=== PATIENT | female | born 1990 | race Caucasian/White ===

== ENCOUNTER 2018-07-16 11:21 | Emergency (ER) | payer OTHER, MEDICAID, SELFPAY ==
[2018-07-16 11:32] VITALS: BP 131/78; PULSE 93; RESP 17; TEMP 37.7; O2SAT 99; BMI 19.8
[2018-07-16] MEDS: SODIUM CHLORIDE 0.9% 1,000 ML 150 ML IV (11:55)
[2018-07-16 12:01] LABS: Add Manual Diff / Slide Review NO; Basophils Absolute Auto 0 /uL (0-100); Basophils Percent Auto 0.1 % (0-2); Eosinophils Absolute Auto 0 /uL (0-450); Eosinophils Percent Auto 0.1 % (2-4); Hematocrit 38.7 % (36-46); Hemoglobin 13.7 g/dL (12.0-16.0); Lymphocytes Absolute Auto 400 /uL (1100-4500); Lymphocytes Percent Auto 6.5 % (25-40); Mean Corpuscular HGB Conc 35.4 % (30-36); Mean Corpuscular Hemoglobin 32.3 PG (26-34); Mean Corpuscular Volume 91.3 fL (80-100); Monocytes Absolute Auto 500 /uL (0-900); Neutrophils Absolute Auto 5500 /uL (1500-7000); Neutrophils Percent Auto 85.3 % (50-75); Platelet Count 158 X10^3/uL (150-400); Red Blood Cell Count 4.24 X10^6/uL (4.0-5.2); Red Cell Distribution Width 11.8 % (11.6-14.8); White Blood Cell Count 6.4 X10^3/uL (4.5-11.0)
--- NOTE | 2018-07-16 12:02 | ED.ABDPAIN ---
HPI - Abdominal Pain <Pratibha Thomas PA-C - Last Filed: 07/16/18 15:28> General Chief Complaint: Abdominal Pain Stated Complaint: POSSIBLE FLU,CDIFF IN PAST Time Seen by Provider: 07/16/18 11:23 Source: patient Mode of arrival: ambulatory Limitations: no limitations History of Present Illness HPI narrative: This 27-year-old female is sent from walk-in clinic for further evaluation of abdominal symptoms id she had onset of-watery diarrhea 4 days ago which has gradually worsened, and yesterday she started to have fever up to 100 at home and feeling achy all over with chills and sweats. she states that she has had 4 episodes of diarrhea today, again watery, no blood or mucus. She has vomited twice after trying fluids, has not had food. She denies any headache, nasal symptoms, cough. She denies wheeze, dyspnea or chest pain. She states she has crampy abdominal pain that is worse on the left, worsened with moving around and pressure, better resting. She denies any urinary symptoms or hematuria. Denies any vaginal discharge or STD concerns. Denies any possibility of . She denies any rash or other new symptoms on systems review. She has not traveled outside of the country since March, no recent personal or dietary exposures. She has a history of C diff more than 2 years ago, no recent antibiotics. Related Data Home Medications Medication Instructions Recorded Confirmed citalopram 40 mg PO DAILY 07/16/18 07/16/18 multivitamin with minerals 1 tab PO DAILY 07/16/18 07/16/18 [Hair,Skin and Nails] Previous Rx's Medication Instructions Recorded hydrocodone-acetaminophen 1 tab PO Q6H PRN #4 tab 07/16/18 ondansetron 4 mg PO Q8H PRN #6 tab 07/16/18 Allergies Allergy/AdvReac Type Severity Reaction Status Date / Time Sulfa (Sulfonamide Allergy Mild Unverified 07/15/17 11:51 Antibiotics) [SULFA (SULFONAMIDE ANTIBIOTICS)] Review of Systems <Pratibha Thomas PA-C - Last Filed: 07/16/18 15:28> Review of Systems ROS Unobtainable: All systems reviewed & are unremarkable except as noted in HPI and below PFSH <Pratibha Thomas PA-C - Last Filed: 07/16/18 15:28> Medical History Anxiety disorder (Chronic) No pertinent family history (Chronic) Surgical History (Updated 07/16/18 @ 12:22 by Pratibha Thomas PA-C) History of mandibular surgery (Resolved) Status post tonsillectomy and adenoidectomy (Resolved) Social History Smoking Status: Never smoker Social History Smoking Status: Never smoker Comment: No ETOH Exam <Pratibha Thomas PA-C - Last Filed: 07/16/18 15:28> Narrative Exam Narrative: GENERAL APPEARANCE: Patient sitting comfortably, in no distress. HEENT: PERRL, EOMI, no scleral icterus, normal oropharynx NECK: Supple, no masses LUNGS: Clear to auscultation bilaterally. no cough on exam HEART: Rate and rhythm regular, normal S1 and S2, no S3 or S4. ABDOMEN: Soft, nondistended, bowel sounds present x 4 quadrants, no masses palpable, no hepatosplenomegaly. moderate generalized tenderness most over the lower quadrant without guarding or rebound. +left CVAT EXTREMITIES: No edema, no calf tenderness DERMATOLOGIC: No jaundice or exanthem NEUROLOGIC: Alert and oriented with normal speech and coordination Initial Vital Signs Initial Vital Signs: Vital Signs Temperature 99.9 F H 07/16/18 11:32 Pulse Rate 93 H 07/16/18 11:32 Respiratory Rate 17 07/16/18 11:32 Blood Pressure 131/78 07/16/18 11:32 Pulse Oximetry 99 07/16/18 11:32 <Fuad Aviles DO - Last Filed: 07/16/18 15:38> Initial Vital Signs Initial Vital Signs: Vital Signs Temperature 99.9 F H 07/16/18 11:32 Pulse Rate 93 H 07/16/18 11:32 Respiratory Rate 17 07/16/18 11:32 Blood Pressure 131/78 07/16/18 11:32 Pulse Oximetry 99 07/16/18 11:32 Course <Pratibha Thomas PA-C - Last Filed: 07/16/18 15:28> Orders Ordered: ED Orders 07/16/18 11:50 Complete Blood Count AUTO DIFF Stat Comprehensive Metabolic Panel Stat Lipase Stat 07/16/18 13:05 GI Panel (Film Array) Stat Discontinued Medications Sodium Chloride (Normal Saline 0.9%) 1,000 mls @ 150 mls/hr IV CONT KISHA Last Infusion: 07/16/18 13:25 Dose: 0 mls/hr Admin: 07/16/18 11:55 Dose: 150 mls/hr Sodium Chloride (Normal Saline 0.9%) 1,000 mls @ 1,000 mls/hr IV BOLUS ONE Stop: 07/16/18 14:12 Last Admin: 07/16/18 13:29 Dose: 1,000 mls/hr Ketorolac Tromethamine (Toradol) 30 mg IV NOW ONE Stop: 07/16/18 12:17 Last Admin: 07/16/18 12:58 Dose: 30 mg Morphine Sulfate (Morphine) 1 mg IV NOW ONE Stop: 07/16/18 14:17 Last Admin: 07/16/18 14:27 Dose: 1 mg Ondansetron HCl (Zofran) 4 mg IV NOW ONE Stop: 07/16/18 12:17 Last Admin: 07/16/18 12:58 Dose: 4 mg Vital Signs - 8 hr 07/16/18 11:32 07/16/18 13:13 07/16/18 14:34 Temperature 99.9 F H Pulse Rate 93 H 86 83 Respiratory Rate 17 17 17 Blood Pressure 131/78 Blood Pressure [Right Arm] 124/65 104/62 Pulse Oximetry 99 100 100 <Fuad Aviles, DO - Last Filed: 07/16/18 15:38> Orders Ordered: ED Orders 07/16/18 11:50 Complete Blood Count AUTO DIFF Stat Comprehensive Metabolic Panel Stat Lipase Stat 07/16/18 13:05 GI Panel (Film Array) Stat Discontinued Medications Sodium Chloride (Normal Saline 0.9%) 1,000 mls @ 150 mls/hr IV CONT KISHA Last Infusion: 07/16/18 13:25 Dose: 0 mls/hr Admin: 07/16/18 11:55 Dose: 150 mls/hr Sodium Chloride (Normal Saline 0.9%) 1,000 mls @ 1,000 mls/hr IV BOLUS ONE Stop: 07/16/18 14:12 Last Admin: 07/16/18 13:29 Dose: 1,000 mls/hr Ketorolac Tromethamine (Toradol) 30 mg IV NOW ONE Stop: 07/16/18 12:17 Last Admin: 07/16/18 12:58 Dose: 30 mg Morphine Sulfate (Morphine) 1 mg IV NOW ONE Stop: 07/16/18 14:17 Last Admin: 07/16/18 14:27 Dose: 1 mg Ondansetron HCl (Zofran) 4 mg IV NOW ONE Stop: 07/16/18 12:17 Last Admin: 07/16/18 12:58 Dose: 4 mg Vital Signs - 8 hr 07/16/18 11:32 07/16/18 13:13 07/16/18 14:34 Temperature 99.9 F H Pulse Rate 93 H 86 83 Respiratory Rate 17 17 17 Blood Pressure 131/78 Blood Pressure [Right Arm] 124/65 104/62 Pulse Oximetry 99 100 100 MDM - Abdominal Pain <Pratibha Thomas PA-C - Last Filed: 07/16/18 15:28> Lab Data Result diagrams: 07/16/18 11:50 07/16/18 11:50 Lab Results 07/16/18 07/16/18 07/16/18 Range/Units 11:50 11:50 13:05 WBC 6.4 (4.5-11.0) X10^3/uL RBC 4.24 (4.0-5.2) X10^6/uL Hgb 13.7 (12.0-16.0) g/dL Hct 38.7 (36-46) % MCV 91.3 (80-100) fL MCH 32.3 (26-34) PG MCHC 35.4 (30-36) % RDW 11.8 (11.6-14.8) % Plt Count 158 (150-400) X10^3/uL Neut % (Auto) 85.3 H (50-75) % Lymph % (Auto) 6.5 L (25-40) % [place] % (Auto) 8.0 (3-14) % Eos % (Auto) 0.1 L (2-4) % Baso % (Auto) 0.1 (0-2) % Neut # (Auto) 5500 (9906-5039) /uL Lymph # (Auto) 400 L (8414-5107) /uL [place] # (Auto) 500 (0-900) /uL Eos # (Auto) 0 (0-450) /uL Baso # (Auto) 0 (0-100) /uL Sodium 136 L (137-145) mmol/L Potassium 4.0 (3.4-5.1) mmol/L Chloride 103 (98-107) mmol/L Carbon Dioxide 23 (22-32) mmol/L BUN 11 (7-17) mg/dL Creatinine 0.60 (0.52-1.04) mg/dL Estimated GFR > 60.0 (>60) mL/min BUN/Creatinine Ratio 18.3 (6-22) Glucose 90 (70-100) mg/dL Calcium 9.2 (8.4-10.2) mg/dL Total Bilirubin 0.6 (0.2-1.3) mg/dL AST 18 (14-36) IU/L ALT 24 (9-52) IU/L Alkaline Phosphatase 51 (38-126) U/L Total Protein 7.2 (6.3-8.2) g/dL Albumin 4.5 (3.5-5.0) g/dL Globulin 2.7 (1.7-4.1) g/dL Albumin/Globulin Ratio 1.7 (1.0-2.8) Lipase 58 (23-300) U/L Stl C. cayetanensis PCR Not detected (Not Detect) Stool Rotavirus (PCR) Detected H (Not Detect) Stool Adenovirus (PCR) Not detected (Not Detect) Stool Astrovirus (PCR) Not detected (Not Detect) Stool Cryptosporidium PCR Not detected (Not Detect) Stl E.coli Shiga Tox PCR Not detected (Not Detect) St Sh/Enteroin Ecoli PCR Not detected (Not Detect) Stool E coli O157 PCR Not Reportable Stl Enterotoxigenic E PCR Not detected (Not Detect) Stool EPEC (PCR) Not detected (Not Detect) Stl E. histolytica PCR Not detected (Not Detect) Stool Giardia Lamblia PCR Not detected (Not Detect) Stool Sapovirus (PCR) Not detected (Not Detect) Stl P. shigelloides PCR Not detected (Not Detect) St Y.enterocolitica PCR Not detected (Not Detect) Stool Vibrio (PCR) Not detected (Not Detect) Stl Vibrio cholerae PCR Not detected (Not Detect) Stl Enteroaggr Ecoli PCR Not detected (Not Detect) Stl Norovirus GI/GII PCR Not detected (Not Detect) Campylobacter (PCR) Not detected (Not Detect) C. difficile Tox (PCR) Not detected (Not Detect) Salmonella (PCR) Not detected (Not Detect) Point of care testing: Point of Care Testing Test Results Negative Urine Dip Bedside Urine Glucose Negative Bedside Urine Bilirubin + 1 Bedside Urine Ketone + 15 Urine Specific Steele 1.025 Bedside Urine Occult Blood - Negative Bedside Urine pH 6.0 Bedside Urine Protein +/- 15 Bedside Urine Urobilinogen - Negative Bedside Urine Nitrite - Negative Bedside Urine Leukocytes - Negative Esterase <Fuad Aviles DO - Last Filed: 07/16/18 15:38> Lab Data Lab Results 07/16/18 07/16/18 07/16/18 Range/Units 11:50 11:50 13:05 WBC 6.4 (4.5-11.0) X10^3/uL RBC 4.24 (4.0-5.2) X10^6/uL Hgb 13.7 (12.0-16.0) g/dL Hct 38.7 (36-46) % MCV 91.3 (80-100) fL MCH 32.3 (26-34) PG MCHC 35.4 (30-36) % RDW 11.8 (11.6-14.8) % Plt Count 158 (150-400) X10^3/uL Neut % (Auto) 85.3 H (50-75) % Lymph % (Auto) 6.5 L (25-40) % [place] % (Auto) 8.0 (3-14) % Eos % (Auto) 0.1 L (2-4) % Baso % (Auto) 0.1 (0-2) % Neut # (Auto) 5500 (1012-5467) /uL Lymph # (Auto) 400 L (7631-9112) /uL [place] # (Auto) 500 (0-900) /uL Eos # (Auto) 0 (0-450) /uL Baso # (Auto) 0 (0-100) /uL Sodium 136 L (137-145) mmol/L Potassium 4.0 (3.4-5.1) mmol/L Chloride 103 (98-107) mmol/L Carbon Dioxide 23 (22-32) mmol/L BUN 11 (7-17) mg/dL Creatinine 0.60 (0.52-1.04) mg/dL Estimated GFR > 60.0 (>60) mL/min BUN/Creatinine Ratio 18.3 (6-22) Glucose 90 (70-100) mg/dL Calcium 9.2 (8.4-10.2) mg/dL Total Bilirubin 0.6 (0.2-1.3) mg/dL AST 18 (14-36) IU/L ALT 24 (9-52) IU/L Alkaline Phosphatase 51 (38-126) U/L Total Protein 7.2 (6.3-8.2) g/dL Albumin 4.5 (3.5-5.0) g/dL Globulin 2.7 (1.7-4.1) g/dL Albumin/Globulin Ratio 1.7 (1.0-2.8) Lipase 58 (23-300) U/L Stl C. cayetanensis PCR Not detected (Not Detect) Stool Rotavirus (PCR) Detected H (Not Detect) Stool Adenovirus (PCR) Not detected (Not Detect) Stool Astrovirus (PCR) Not detected (Not Detect) Stool Cryptosporidium PCR Not detected (Not Detect) Stl E.coli Shiga Tox PCR Not detected (Not Detect) St Sh/Enteroin Ecoli PCR Not detected (Not Detect) Stool E coli O157 PCR Not Reportable Stl Enterotoxigenic E PCR Not detected (Not Detect) Stool EPEC (PCR) Not detected (Not Detect) Stl E. histolytica PCR Not detected (Not Detect) Stool Giardia Lamblia PCR Not detected (Not Detect) Stool Sapovirus (PCR) Not detected (Not Detect) Stl P. shigelloides PCR Not detected (Not Detect) St Y.enterocolitica PCR Not detected (Not Detect) Stool Vibrio (PCR) Not detected (Not Detect) Stl Vibrio cholerae PCR Not detected (Not Detect) Stl Enteroaggr Ecoli PCR Not detected (Not Detect) Stl Norovirus GI/GII PCR Not detected (Not Detect) Campylobacter (PCR) Not detected (Not Detect) C. difficile Tox (PCR) Not detected (Not Detect) Salmonella (PCR) Not detected (Not Detect) Point of care testing: Point of Care Testing Test Results Negative Urine Dip Bedside Urine Glucose Negative Bedside Urine Bilirubin + 1 Bedside Urine Ketone + 15 Urine Specific Steele 1.025 Bedside Urine Occult Blood - Negative Bedside Urine pH 6.0 Bedside Urine Protein +/- 15 Bedside Urine Urobilinogen - Negative Bedside Urine Nitrite - Negative Bedside Urine Leukocytes - Negative Esterase Discharge Plan Departure Patient Disposition: Home Clinical Impression: Gastroenteritis Discharge Date/Time: 07/16/18 15:09 Interventions: ED Discharge Assessment Last Done: 07/16/18 15:08 Instructions: Rotavirus, DI for Viral Gastroenteritis -- Adult Activity Restrictions/Additional Instructions: Your testing today showed a viral intestinal infection called rotavirus, which 1 of the most common sources of diarrhea and vomiting. typically this gets better on its own. I have prescribed antinausea medicine for you to take as needed. Please drink plenty of clear fluids today. Please knot picker cloth some Imodium and take that as needed as it typically helps with diarrhea and crampy pain. you can take [id number] 800mg every 8 hours, and I have prescribed few stronger pain pills to take today if you need them (do not drive as they can make you sleepy). As we talked about, you should return if you have any acutely worsening symptoms again, i.e. unable to keep down any fluids. For today, please drink plenty of clear fluids, and you can try broth. If you are feeling better this evening you can try a little bland food such as applesauce. If you are doing better tomorrow, you can try other bland foods such as bananas, white rice, white toast and slowly advance your diet from there as you are feeling better. Prescriptions: New hydrocodone-acetaminophen 5-325 mg tablet 1 tab PO Q6H PRN (Reason: acute abdominal pain) Qty: 4 RF: 0 ondansetron 4 mg tablet,disintegrating 4 mg PO Q8H PRN (Reason: nausea and vomiting) Qty: 6 RF: 0 No Action citalopram 40 mg tablet 40 mg PO DAILY RF: 0 multivitamin with minerals [Hair,Skin and Nails] Tablet 1 tab PO DAILY RF: 0 Referrals: Liliane Cartagena ARNP [[employer]] - <Fuad Aviles DO - Last Filed: 07/16/18 15:38> Cosign ED Attending Eliel Attestation: I was immediately available in the department for consultation. Documentation has been reviewed. I agree with assessment and plan.
[2018-07-16 12:09] LABS: Alanine Aminotransferase 24 IU/L (9-52); Albumin 4.5 g/dL (3.5-5.0); Albumin Globulin Ratio 1.7 (1.0-2.8); Alkaline Phosphatase 51 U/L (38-126); Aspartate Aminotransferase 18 IU/L (14-36); BUN Creatinine Ratio 18.3 (6-22); Bilirubin Total 0.6 mg/dL (0.2-1.3); Blood Urea Nitrogen 11 mg/dL (7-17); Calcium 9.2 mg/dL (8.4-10.2); Carbon Dioxide 23 mmol/L (22-32); Chloride 103 mmol/L (98-107); Estimated Glomerular Filt Rate > 60.0 mL/min (>60); Globulin 2.7 g/dL (1.7-4.1); Glucose 90 mg/dL (70-100); HEMOLYSIS 16 (0-50); Lipase 58 U/L (23-300); Sodium 136 mmol/L (137-145); Total Protein 7.2 g/dL (6.3-8.2)
--- NOTE | 2018-07-16 12:24 | ED_ITS ---
HPI - Abdominal Pain <Pratibha Thomas PA-C - Last Filed: 07/16/18 15:28> General Chief Complaint: Abdominal Pain Stated Complaint: POSSIBLE FLU,CDIFF IN PAST Time Seen by Provider: 07/16/18 11:23 Source: patient Mode of arrival: ambulatory Limitations: no limitations History of Present Illness HPI narrative: This 27-year-old female is sent from walk-in clinic for further evaluation of abdominal symptoms id she had onset of-watery diarrhea 4 days ago which has gradually worsened, and yesterday she started to have fever up to 100 at home and feeling achy all over with chills and sweats. she states that she has had 4 episodes of diarrhea today, again watery, no blood or mucus. She has vomited twice after trying fluids, has not had food. She denies any headache, nasal symptoms, cough. She denies wheeze, dyspnea or chest pain. She states she has crampy abdominal pain that is worse on the left, worsened with moving around and pressure, better resting. She denies any urinary symptoms or hematuria. Denies any vaginal discharge or STD concerns. Denies any possibility of . She denies any rash or other new symptoms on systems review. She has not traveled outside of the country since March, no recent personal or dietary exposures. She has a history of C diff more than 2 years ago, no recent antibiotics. Related Data Home Medications Medication Instructions Recorded Confirmed citalopram 40 mg PO DAILY 07/16/18 07/16/18 multivitamin with minerals 1 tab PO DAILY 07/16/18 07/16/18 [Hair,Skin and Nails] Previous Rx's Medication Instructions Recorded hydrocodone-acetaminophen 1 tab PO Q6H PRN #4 tab 07/16/18 ondansetron 4 mg PO Q8H PRN #6 tab 07/16/18 Allergies Allergy/AdvReac Type Severity Reaction Status Date / Time Sulfa (Sulfonamide Allergy Mild Unverified 07/15/17 11:51 Antibiotics) [SULFA (SULFONAMIDE ANTIBIOTICS)] Review of Systems <Pratibha Thomas PA-C - Last Filed: 07/16/18 15:28> Review of Systems ROS Unobtainable: All systems reviewed & are unremarkable except as noted in HPI and below PFSH <Pratibha Thomas PA-C - Last Filed: 07/16/18 15:28> Medical History Anxiety disorder (Chronic) No pertinent family history (Chronic) Surgical History (Updated 07/16/18 @ 12:22 by Pratibha Thomas PA-C) History of mandibular surgery (Resolved) Status post tonsillectomy and adenoidectomy (Resolved) Social History Smoking Status: Never smoker Social History Smoking Status: Never smoker Comment: No ETOH Exam <Pratibha Thomas PA-C - Last Filed: 07/16/18 15:28> Narrative Exam Narrative: GENERAL APPEARANCE: Patient sitting comfortably, in no distress. HEENT: PERRL, EOMI, no scleral icterus, normal oropharynx NECK: Supple, no masses LUNGS: Clear to auscultation bilaterally. no cough on exam HEART: Rate and rhythm regular, normal S1 and S2, no S3 or S4. ABDOMEN: Soft, nondistended, bowel sounds present x 4 quadrants, no masses palp able, no hepatosplenomegaly. moderate generalized tenderness most over the lower quadrant without guarding or rebound. +left CVAT EXTREMITIES: No edema, no calf tenderness DERMATOLOGIC: No jaundice or exanthem NEUROLOGIC: Alert and oriented with normal speech and coordination Initial Vital Signs Initial Vital Signs: Vital Signs Temperature 99.9 F H 07/16/18 11:32 Pulse Rate 93 H 07/16/18 11:32 Respiratory Rate 17 07/16/18 11:32 Blood Pressure 131/78 07/16/18 11:32 Pulse Oximetry 99 07/16/18 11:32 <Fuad Aviles DO - Last Filed: 07/16/18 15:38> Initial Vital Signs Initial Vital Signs: Vital Signs Temperature 99.9 F H 07/16/18 11:32 Pulse Rate 93 H 07/16/18 11:32 Respiratory Rate 17 07/16/18 11:32 Blood Pressure 131/78 07/16/18 11:32 Pulse Oximetry 99 07/16/18 11:32 Course <Pratibha Thomas PA-C - Last Filed: 07/16/18 15:28> Orders Ordered: ED Orders 07/16/18 11:50 Complete Blood Count AUTO DIFF Stat Comprehensive Metabolic Panel Stat Lipase Stat 07/16/18 13:05 GI Panel (Film Array) Stat Discontinued Medications Sodium Chloride (Normal Saline 0.9%) 1,000 mls @ 150 mls/hr IV CONT KISHA Last Infusion: 07/16/18 13:25 Dose: 0 mls/hr Admin: 07/16/18 11:55 Dose: 150 mls/hr Sodium Chloride (Normal Saline 0.9%) 1,000 mls @ 1,000 mls/hr IV BOLUS ONE Stop: 07/16/18 14:12 Last Admin: 07/16/18 13:29 Dose: 1,000 mls/hr Ketorolac Tromethamine (Toradol) 30 mg IV NOW ONE Stop: 07/16/18 12:17 Last Admin: 07/16/18 12:58 Dose: 30 mg Morphine Sulfate (Morphine) 1 mg IV NOW ONE Stop: 07/16/18 14:17 Last Admin: 07/16/18 14:27 Dose: 1 mg Ondansetron HCl (Zofran) 4 mg IV NOW ONE Stop: 07/16/18 12:17 Last Admin: 07/16/18 12:58 Dose: 4 mg Vital Signs - 8 hr 07/16/18 11:32 07/16/18 13:13 07/16/18 14:34 Temperature 99.9 F H Pulse Rate 93 H 86 83 Respiratory Rate 17 17 17 Blood Pressure 131/78 Blood Pressure [Right Arm] 124/65 104/62 Pulse Oximetry 99 100 100 <Fuad Aviles, - Last Filed: 07/16/18 15:38> Orders Ordered: ED Orders 07/16/18 11:50 Complete Blood Count AUTO DIFF Stat Comprehensive Metabolic Panel Stat Lipase Stat 07/16/18 13:05 GI Panel (Film Array) Stat Discontinued Medications Sodium Chloride (Normal Saline 0.9%) 1,000 mls @ 150 mls/hr IV CONT KISHA Last Infusion: 07/16/18 13:25 Dose: 0 mls/hr Admin: 07/16/18 11:55 Dose: 150 mls/hr Sodium Chloride (Normal Saline 0.9%) 1,000 mls @ 1,000 mls/hr IV BOLUS ONE Stop: 07/16/18 14:12 Last Admin: 07/16/18 13:29 Dose: 1,000 mls/hr Ketorolac Tromethamine (Toradol) 30 mg IV NOW ONE Stop: 07/16/18 12:17 Last Admin: 07/16/18 12:58 Dose: 30 mg Morphine Sulfate (Morphine) 1 mg IV NOW ONE Stop: 07/16/18 14:17 Last Admin: 07/16/18 14:27 Dose: 1 mg Ondansetron HCl (Zofran) 4 mg IV NOW ONE Stop: 07/16/18 12:17 Last Admin: 07/16/18 12:58 Dose: 4 mg Vital Signs - 8 hr 07/16/18 11:32 07/16/18 13:13 07/16/18 14:34 Temperature 99.9 F H Pulse Rate 93 H 86 83 Respiratory Rate 17 17 17 Blood Pressure 131/78 Blood Pressure [Right Arm] 124/65 104/62 Pulse Oximetry 99 100 100 MDM - Abdominal Pain <Pratibha Thomas PA-C - Last Filed: 07/16/18 15:28> Lab Data Result diagrams: 07/16/18 11:50 07/16/18 11:50 Lab Results 07/16/18 07/16/18 07/16/18 Range/Units 11:50 11:50 13:05 WBC 6.4 (4.5-11.0) X10^3/uL RBC 4.24 (4.0-5.2) X10^6/uL Hgb 13.7 (12.0-16.0) g/dL Hct 38.7 (36-46) % MCV 91.3 (80-100) fL MCH 32.3 (26-34) PG MCHC 35.4 (30-36) % RDW 11.8 (11.6-14.8) % Plt Count 158 (150-400) X10^3/uL Neut % (Auto) 85.3 H (50-75) % Lymph % (Auto) 6.5 L (25-40) % [place] % (Auto) 8.0 (3-14) % Eos % (Auto) 0.1 L (2-4) % Baso % (Auto) 0.1 (0-2) % Neut # (Auto) 5500 (4173-2133) /uL Lymph # (Auto) 400 L (9158-1038) /uL [place] # (Auto) 500 (0-900) /uL Eos # (Auto) 0 (0-450) /uL Baso # (Auto) 0 (0-100) /uL Sodium 136 L (137-145) mmol/L Potassium 4.0 (3.4-5.1) mmol/L Chloride 103 (98-107) mmol/L Carbon Dioxide 23 (22-32) mmol/L BUN 11 (7-17) mg/dL Creatinine 0.60 (0.52-1.04) mg/dL Estimated GFR > 60.0 (>60) mL/min BUN/Creatinine Ratio 18.3 (6-22) Glucose 90 (70-100) mg/dL Calcium 9.2 (8.4-10.2) mg/dL Total Bilirubin 0.6 (0.2-1.3) mg/dL AST 18 (14-36) IU/L ALT 24 (9-52) IU/L Alkaline Phosphatase 51 (38-126) U/L Total Protein 7.2 (6.3-8.2) g/dL Albumin 4.5 (3.5-5.0) g/dL Globulin 2.7 (1.7-4.1) g/dL Albumin/Globulin Ratio 1.7 (1.0-2.8) Lipase 58 (23-300) U/L Stl C. cayetanensis PCR Not detected (Not Detect) Stool Rotavirus (PCR) Detected H (Not Detect) Stool Adenovirus (PCR) Not detected (Not Detect) Stool Astrovirus (PCR) Not detected (Not Detect) Stool Cryptosporidium PCR Not detected (Not Detect) Stl E.coli Shiga Tox PCR Not detected (Not Detect) St Sh/Enteroin Ecoli PCR Not detected (Not Detect) Stool E coli O157 PCR Not Reportable Stl Enterotoxigenic E PCR Not detected (Not Detect) Stool EPEC (PCR) Not detected (Not Detect) Stl E. histolytica PCR Not detected (Not Detect) Stool Giardia Lamblia PCR Not detected (Not Detect) Stool Sapovirus (PCR) Not detected (Not Detect) Stl P. shigelloides PCR Not detected (Not Detect) St Y.enterocolitica PCR Not detected (Not Detect) Stool Vibrio (PCR) Not detected (Not Detect) Stl Vibrio cholerae PCR Not detected (Not Detect) Stl Enteroaggr Ecoli PCR Not detected (Not Detect) Stl Norovirus GI/GII PCR Not detected (Not Detect) Campylobacter (PCR) Not detected (Not Detect) C. difficile Tox (PCR) Not detected (Not Detect) Salmonella (PCR) Not detected (Not Detect) Point of care testing: Point of Care Testing Test Results Negative Urine Dip Bedside Urine Glucose Negative Bedside Urine Bilirubin + 1 Bedside Urine Ketone + 15 Urine Specific [place] 1.025 Bedside Urine Occult Blood - Negative Bedside Urine pH 6.0 Bedside Urine Protein +/- 15 Bedside Urine Urobilinogen - Negative Bedside Urine Nitrite - Negative Bedside Urine Leukocytes - Negative Esterase <Fuad Aviles DO - Last Filed: 07/16/18 15:38> Lab Data Lab Results 07/16/18 07/16/18 07/16/18 Range/Units 11:50 11:50 13:05 WBC 6.4 (4.5-11.0) X10^3/uL RBC 4.24 (4.0-5.2) X10^6/uL Hgb 13.7 (12.0-16.0) g/dL Hct 38.7 (36-46) % MCV 91.3 (80-100) fL MCH 32.3 (26-34) PG MCHC 35.4 (30-36) % RDW 11.8 (11.6-14.8) % Plt Count 158 (150-400) X10^3/uL Neut % (Auto) 85.3 H (50-75) % Lymph % (Auto) 6.5 L (25-40) % [place] % (Auto) 8.0 (3-14) % Eos % (Auto) 0.1 L (2-4) % Baso % (Auto) 0.1 (0-2) % Neut # (Auto) 5500 (5977-7244) /uL Lymph # (Auto) 400 L (5127-9007) /uL [place] # (Auto) 500 (0-900) /uL Eos # (Auto) 0 (0-450) /uL Baso # (Auto) 0 (0-100) /uL Sodium 136 L (137-145) mmol/L Potassium 4.0 (3.4-5.1) mmol/L Chloride 103 (98-107) mmol/L Carbon Dioxide 23 (22-32) mmol/L BUN 11 (7-17) mg/dL Creatinine 0.60 (0.52-1.04) mg/dL Estimated GFR > 60.0 (>60) mL/min BUN/Creatinine Ratio 18.3 (6-22) Glucose 90 (70-100) mg/dL Calcium 9.2 (8.4-10.2) mg/dL Total Bilirubin 0.6 (0.2-1.3) mg/dL AST 18 (14-36) IU/L ALT 24 (9-52) IU/L Alkaline Phosphatase 51 (38-126) U/L Total Protein 7.2 (6.3-8.2) g/dL Albumin 4.5 (3.5-5.0) g/dL Globulin 2.7 (1.7-4.1) g/dL Albumin/Globulin Ratio 1.7 (1.0-2.8) Lipase 58 (23-300) U/L Stl C. cayetanensis PCR Not detected (Not Detect) Stool Rotavirus (PCR) Detected H (Not Detect) Stool Adenovirus (PCR) Not detected (Not Detect) Stool Astrovirus (PCR) Not detected (Not Detect) Stool Cryptosporidium PCR Not detected (Not Detect) Stl E.coli Shiga Tox PCR Not detected (Not Detect) St Sh/Enteroin Ecoli PCR Not detected (Not Detect) Stool E coli O157 PCR Not Reportable Stl Enterotoxigenic E PCR Not detected (Not Detect) Stool EPEC (PCR) Not detected (Not Detect) Stl E. histolytica PCR Not detected (Not Detect) Stool Giardia Lamblia PCR Not detected (Not Detect) Stool Sapovirus (PCR) Not detected (Not Detect) Stl P. shigelloides PCR Not detected (Not Detect) St Y.enterocolitica PCR Not detected (Not Detect) Stool Vibrio (PCR) Not detected (Not Detect) Stl Vibrio cholerae PCR Not detected (Not Detect) Stl Enteroaggr Ecoli PCR Not detected (Not Detect) Stl Norovirus GI/GII PCR Not detected (Not Detect) Campylobacter (PCR) Not detected (Not Detect) C. difficile Tox (PCR) Not detected (Not Detect) Salmonella (PCR) Not detected (Not Detect) Point of care testing: Point of Care Testing Test Results Negative Urine Dip Bedside Urine Glucose Negative Bedside Urine Bilirubin + 1 Bedside Urine Ketone + 15 Urine Specific [place] 1.025 Bedside Urine Occult Blood - Negative Bedside Urine pH 6.0 Bedside Urine Protein +/- 15 Bedside Urine Urobilinogen - Negative Bedside Urine Nitrite - Negative Bedside Urine Leukocytes - Negative Esterase Discharge Plan Departure Patient Disposition: Home Clinical Impression: Gastroenteritis Discharge Date/Time: 07/16/18 15:09 Interventions: ED Discharge Assessment Last Done: 07/16/18 15:08 Instructions: Rotavirus, DI for Viral Gastroenteritis -- Adult Activity Restrictions/Additional Instructions: Your testing today showed a viral intestinal infection called rotavirus, which 1 of the most common sources of diarrhea and vomiting. typically this gets better on its own. I have prescribed antinausea medicine for you to take as needed. Please drink plenty of clear fluids today. Please roll picker some Imodium and take that as needed as it typically helps with diarrhea and crampy pain. you can take [id number] 800mg every 8 hours, and I have prescribed few stronger pain pills to take today if you need them (do not drive as they can make you sleepy). As we talked about, you should return if you have any acutely worsening symptoms again, i.e. unable to keep down any fluids. For today, please drink plenty of clear fluids, and you can try broth. If you are feeling better this evening you can try a little bland food such as applesauce. If you are doing better tomorrow, you can try other bland foods such as bananas, white rice, white toast and slowly advance your diet from there as you are feeling better. Prescriptions: New hydrocodone-acetaminophen 5-325 mg tablet 1 tab PO Q6H PRN (Reason: acute abdominal pain) Qty: 4 RF: 0 ondansetron 4 mg tablet,disintegrating 4 mg PO Q8H PRN (Reason: nausea and vomiting) Qty: 6 RF: 0 No Action citalopram 40 mg tablet 40 mg PO DAILY RF: 0 multivitamin with minerals [Hair,Skin and Nails] Tablet 1 tab PO DAILY RF: 0 Referrals: Liliane Cartagena ARNP [[facility]] - <Fuad Aviles DO - Last Filed: 07/16/18 15:38> Cosign ED Attending Eliel Attestation: I was immediately available in the de partment for consultation. Documentation has been reviewed. I agree with assessment and plan.
[2018-07-16] MEDS: KETOROLAC 60 MG/2 ML VIAL 30 MG IV (12:58)
[2018-07-16] MEDS: ONDANSETRON 4 MG/2 ML INJ IV (12:58)
[2018-07-16 13:13] VITALS: BP 124/65; PULSE 86; RESP 17; O2SAT 100
[2018-07-16] MEDS: SODIUM CHLORIDE 0.9% 1,000 ML 1000 ML IV (13:29)
[2018-07-16] MEDS: MORPHINE 2 MG/ML INJ 1 MG IV (14:27)
[2018-07-16 14:34] VITALS: BP 104/62; PULSE 83; RESP 17; O2SAT 100
[2018-07-16 14:37] LABS: Adenovirus F 40/41 Not Detected (Not Detect); Astrovirus Not Detected (Not Detect); Campylobacter Not Detected (Not Detect); Clostridium difficile toxin AB Not Detected (Not Detect); Cryptosporidium Not Detected (Not Detect); Cyclospora cayetanensis Not Detected (Not Detect); Entamoeba histolytica Not Detected (Not Detect); Enteroaggregative E.coli Not Detected (Not Detect); Enteropathogenic E.coli Not Detected (Not Detect); Enterotoxigenic E.coli It/st Not Detected (Not Detect); Giardia lamblia Not Detected (Not Detect); Norovirus GI/GII Not Detected (Not Detect); Plesiomonsa shigelloides Not Detected (Not Detect); Rotavirus A Detected (Not Detect); Salmonella Not Detected (Not Detect); Sapovirus Not Detected (Not Detect); Shiga-like toxin-prod E.coli Not Detected (Not Detect); Shigella/Enteroinvasive E.coli Not Detected (Not Detect); Vibrio Not Detected (Not Detect); Vibrio cholerae Not Detected (Not Detect); Yersinia enterocolitica Not Detected (Not Detect)
== END 2018-07-16 15:09 | disposition home or self-care (01) ==
PROVIDERS: Emergency Medicine; Emergency Provider Internal Medicine
DX: K52.9 Noninfective gastroenteritis and colitis, unspecified (principal); R50.9 Fever, unspecified; R52 Pain, unspecified
CPT/HCPCS: 36591; 80053; 81003; 81025; 83690; 85025; 87400; 87507; 96361; 96374; 96375; 99283; 99284; J1885; J2270; J2405

== ENCOUNTER → 2018-07-16 11:45 | Outpatient (REF) | payer OTHER, MEDICAID, SELFPAY ==
[2018-07-16 12:34] LABS: Influenza A and B by PCR Rapid Negative (Negative)
== END ==
LOC: LAB 11:45
PROVIDERS: Visit Provider Nurse Practitioner Family
DX: R50.9 Fever, unspecified (principal); R52 Pain, unspecified
CPT/HCPCS: 87400

== ENCOUNTER → 2018-08-02 15:12 | Outpatient (CLI) | payer OTHER, MEDICAID, SELFPAY ==
[2018-08-02 15:36] LABS: Add Manual Diff / Slide Review NO; Basophils Absolute Auto 0 /uL (0-100); Basophils Percent Auto 0.7 % (0-2); Eosinophils Absolute Auto 0 /uL (0-450); Eosinophils Percent Auto 0.4 % (2-4); Hematocrit 39.6 % (36-46); Hemoglobin 13.4 g/dL (12.0-16.0); Lymphocytes Absolute Auto 1500 /uL (1100-4500); Lymphocytes Percent Auto 30.1 % (25-40); Mean Corpuscular HGB Conc 33.8 % (30-36); Mean Corpuscular Hemoglobin 31.3 PG (26-34); Mean Corpuscular Volume 92.5 fL (80-100); Monocytes Absolute Auto 300 /uL (0-900); Monocytes Percent Auto 6.3 % (3-14); Neutrophils Absolute Auto 3000 /uL (1500-7000); Neutrophils Percent Auto 62.5 % (50-75); Platelet Count 203 X10^3/uL (150-400); Red Blood Cell Count 4.28 X10^6/uL (4.0-5.2); Red Cell Distribution Width 11.9 % (11.6-14.8); White Blood Cell Count 4.9 X10^3/uL (4.5-11.0)
[2018-08-02 17:00] LABS: Free T4, Direct Thyroxine 0.68 ng/dL (0.78-2.19)
[2018-08-02 17:14] LABS: Thyroid Stimulating Hormone 0.78 uIU/mL (0.47-4.68)
[2018-08-02 17:51] LABS: Ferritin 22.4 ng/mL (6.27-137)
== END ==
PROVIDERS: Visit Provider Family Medicine
DX: L64.8 Other androgenic alopecia (principal)
CPT/HCPCS: 36415; 82306; 82728; 84439; 84443; 85025

== ENCOUNTER → 2018-12-30 13:46 | Outpatient (CLI) | payer OTHER, MEDICAID, SELFPAY ==
--- NOTE | 2018-12-30 | DI.US.S_ITS ---
ULTRASOUND OF RIGHT BREAST: 12/30/2018 CLINICAL: Palp rt breast lump. Comparison is made to exam dated: 03/28/2015 [facility]. Ultrasound of the right breast was performed on the area of interest. Prado scale images of the real-time examination were reviewed. IMPRESSION: NEGATIVE There is no sonographic evidence of malignancy. There is no sonographic abnormality seen in the right breast to correspond with the palpable abnormality, however, clinical followup is recommended. This exam was interpreted at Station ID: [id number]. Electronically Signed By: Yu way/lina:12/30/2018 14:29:44 letter sent: Clinical Evaluation Ultrasound BI-RADS: 1 Negative
== END ==
PROVIDERS: PCP Internal Medicine; Visit Provider Internal Medicine
DX: N63.10 Unspecified lump in the right breast, unspecified quadrant (principal)
CPT/HCPCS: 76642

== ENCOUNTER 2022-05-23 21:12 | Emergency (ER) | payer OTHER, MEDICAID, SELFPAY ==
[2022-05-23] VITALS (8 sets, daily range): BP systolic 99–128; BP diastolic 59–81; PULSE 86–110; RESP 20; TEMP 37.2–37.4; O2SAT 96–100; BMI 19.5
[2022-05-23 21:57] LABS: Add Manual Diff / Slide Review NO; Basophils Absolute Auto 0 /uL (0-100); Basophils Percent Auto 0.5 % (0-2); Eosinophils Absolute Auto 0 /uL (0-450); Eosinophils Percent Auto 0.5 % (2-4); Hematocrit 39.1 % (36-46); Hemoglobin 13.6 g/dL (12.0-16.0); Lymphocytes Absolute Auto 300 /uL (1100-4500); Lymphocytes Percent Auto 5.7 % (25-40); Mean Corpuscular HGB Conc 34.8 % (30-36); Mean Corpuscular Hemoglobin 31.4 PG (26-34); Mean Corpuscular Volume 90.1 fL (80-100); Monocytes Absolute Auto 300 /uL (0-900); Monocytes Percent Auto 5.5 % (3-14); Neutrophils Absolute Auto 5200 /uL (1500-7000); Neutrophils Percent Auto 87.8 % (50-75); Platelet Count 170 X10^3/uL (150-400); Red Blood Cell Count 4.34 X10^6/uL (4.0-5.2); Red Cell Distribution Width 12.7 % (11.6-14.8)
[2022-05-23 22:00] LABS: Alanine Aminotransferase 16 IU/L (<35); Albumin 4.3 g/dL (3.5-5.0); Albumin Globulin Ratio 1.5 (1.0-2.8); Alkaline Phosphatase 53 U/L (38-126); Aspartate Aminotransferase 21 IU/L (14-36); BUN Creatinine Ratio 20.6 (6-22); Bilirubin Total 0.8 mg/dL (0.2-1.3); Blood Urea Nitrogen 13 mg/dL (7-17); Calcium 8.6 mg/dL (8.4-10.2); Carbon Dioxide 22 mmol/L (22-32); Chloride 103 mmol/L (98-107); Estimated Glomerular Filt Rate > 60 mL/min (>60); Globulin 2.8 g/dL (1.7-4.1); Glucose 116 mg/dL (70-100); HEMOLYSIS < 15 (0-50); Lipase 53 U/L (23-300); Potassium 3.4 mmol/L (3.4-5.1); Sodium 136 mmol/L (137-145); Total Protein 7.1 g/dL (6.3-8.2)
[2022-05-23] MEDS: ONDANSETRON 4 MG/2 ML INJ IV (22:26)
[2022-05-23] MEDS: SODIUM CHLORIDE 0.9% 1,000 ML 1000 ML IV (22:26)
--- NOTE | 2022-05-23 22:30 | ED_ITS ---
HPI - Nausea/Vomiting/Diarrhea General Chief complaint: Nausea/Vomiting/Diarrhea Stated complaint: N/V/D, Bloody vomit, Can't hold anything Time Seen by Provider: 05/23/22 22:28 Source: patient and family Mode of arrival: Wheelchair Limitations: no limitations History of Present Illness HPI Narrative: This is a 31-year-old female with history of depression, prior history of C diff with complaint of feeling generally ill yesterday and then developing nausea vomiting and significant amount of diarrhea this morning. Patient states diarrhea has slowed and almost stopped she denies any black or bloody stools. She states it was very watery. She states she had vomiting was mostly clear phlegm me but had a few small flecks of blood 1 time and then persistent with no additional blood or black. She describes epigastric abdominal pain. Does not radiate. She describes generalized abdominal body aches. She is felt warm and had subjective fevers. No nasal congestion, no cold cough or congestion. No chest pain or shortness of breath but states it hurts in her belly when she takes a big breath. Patient denies dysuria urgency or frequency. No vaginal bleeding or discharge. She has been able to tolerate a few sips of water at home today but still felt very nauseated. She takes on antianxiety medication once daily, denies any other medications. She states she is had a jaw surgery in the past. Tobacco, quit drinking alcohol a month was only drinking once or twice a month. Denies any recreational drugs. She was in [place] recently skiing daily and was around a lot of people but no known sick contact. She does note she is had C diff in the past as well as norovirus. She states this feels pretty similar to when she had norovirus. Related Data Home Medications Medication Instructions Recorded Confirmed citalopram 40 mg tablet 40 mg PO DAILY 07/16/18 07/16/18 multivitamin with minerals 1 tab PO DAILY 07/16/18 07/16/18 (Hair,Skin and Nails tablet) Previous Rx's Medication Instructions Recorded hydrocodone 5 mg-acetaminophen 325 1 tab PO Q6H PRN acute abdominal 07/16/18 mg tablet pain #4 tabs Allergies Allergy/AdvReac Type Severity Reaction Status Date / Time Sulfa (Sulfonamide Allergy Mild Verified 05/23/22 22:22 Antibiotics) [SULFA (SULFONAMIDE ANTIBIOTICS)] Review of Systems Review of Systems ROS Unobtainable: All systems reviewed & are unremarkable except as noted in HPI and below Patient History Medical History Anxiety disorder No pertinent family history Surgical History History of mandibular surgery Status post tonsillectomy and adenoidectomy Social History Smoking Status: Never smoker Smoking Status: Never smoker Substance Use Type: does not use Exam Narrative Exam Narrative: GEN: well nourished, well appearing female, alert and oriented x 3, patient appears to be in mild distress. HEENT: Atraumatic, pupils are equal round reactive to light, extraocular movements are intact, nares are clear, TMs are clear with no fluid, there is no conjunctival pallor. Throat is clear without any exudates, erythema, tonsillar enlargement or uvular deviation HEART: Slightly tachycardic 99-105 Regular rate and rhythm without murmur, clicks, rubs. No JVD. No swelling bilateral lower extremities. LUNGS:Lungs clear to auscultation, no wheezes, rales, crackles, chest moves symmetrically, no tachypnea accessory muscle use ABD:bowel sounds normal, soft, mild generalized tenderness, no guarding, rebound, rigidity, no masses noted, no hepatosplenomegaly, nondistended. :No CVA tenderness MSCL: Non-tender, no muscle atrophy, muscles strength 5/5 upper and lower extremities, full range of motion, normal gait NEURO:CN 2-12 intact, sensation normal SKIN: No Rash, erythema or other skin changes Initial Vital Signs Initial Vital Signs: Vital Signs Temperature 99.3 F 05/23/22 21:20 Pulse Rate 110 H 05/23/22 21:20 Respiratory Rate 20 05/23/22 21:20 Blood Pressure 128/81 05/23/22 21:20 Pulse Oximetry 100 05/23/22 21:20 Oxygen Delivery Method 05/23/22 21:20 Course Orders Ordered: ED Orders 05/23/22 21:35 Complete Blood Count AUTO DIFF Stat Comprehensive Metabolic Panel Stat Covid-19 + FLU A/B + RSV - PCR Stat Lipase Stat 05/23/22 23:11 US abdomen complete Stat 05/24/22 02:03 Urine Culture Stat Discontinued Medications Sodium Chloride (Normal Saline 0.9%) 1,000 mls @ 1,000 mls/hr IV BOLUS ONE Stop: 05/23/22 23:22 Last Infusion: 05/23/22 23:23 Dose: 0 mls/hr Documented By: Admin: 05/23/22 22:26 Dose: 1,000 mls/hr Documented By: AT Lactated Ringer's (Lactated Ringers) 1,000 mls @ 1,000 mls/hr IV BOLUS ONE Stop: 05/24/22 00:10 Last Infusion: 05/24/22 00:30 Dose: 0 mls/hr Documented By: Admin: 05/23/22 23:26 Dose: 1,000 mls/hr Documented By: AT Ketorolac Tromethamine (Ketorolac 30 Mg/Ml Vial) 15 mg IV NOW ONE Stop: 05/23/22 23:12 Last Admin: 05/23/22 23:23 Dose: 15 mg Documented By: AT Ondansetron HCl (Ondansetron 4 Mg Odt) 4 mg PO NOW PRN PRN Reason: Nausea And Vomiting Ondansetron HCl (Ondansetron 4 Mg/2 Ml Inj) 4 mg IV NOW PRN PRN Reason: Nausea And Vomiting Last Admin: 05/23/22 22:26 Dose: 4 mg Documented By: AT Ondansetron HCl (Ondansetron 4 Mg Odt Prepack) 1 bottle [facility] [place] SEEINSTR ONE Stop: 05/24/22 02:05 Last Admin: 05/24/22 02:22 Dose: 1 bottle Documented By: GC Pantoprazole Sodium (Pantoprazole 40 Mg Vial) 80 mg IV NOW ONE Stop: 05/23/22 23:12 Last Admin: 05/23/22 23:24 Dose: 80 mg Documented By: AT Vital Signs Vital signs: Vital Signs - 8 hr 05/23/22 21:20 05/23/22 22:22 05/23/22 21:42 Temperature 99.3 F 98.9 F Pulse Rate 110 H 92 H Respiratory Rate 20 Blood Pressure 128/81 Pulse Oximetry 100 99 Oxygen Delivery Method Room Air 05/23/22 21:44 05/23/22 21:44 05/23/22 22:00 Temperature Pulse Rate 97 H 93 H Respiratory Rate Blood Pressure 116/67 Pulse Oximetry 99 96 Oxygen Delivery Method Room Air 05/23/22 22:30 05/23/22 22:30 05/23/22 23:00 Temperature Pulse Rate 92 H Respiratory Rate Blood Pressure 99/59 L 103/60 Pulse Oximetry 98 Oxygen Delivery Method Room Air 05/23/22 23:00 05/24/22 02:19 05/23/22 23:30 Temperature 97.3 F L Pulse Rate 102 H 98 H 86 Respiratory Rate 16 Blood Pressure 109/67 Pulse Oximetry 98 97 98 Oxygen Delivery Method Room Air Room Air 05/24/22 00:00 05/24/22 00:00 05/24/22 00:30 Temperature Pulse Rate 103 H Respiratory Rate Blood Pressure 110/61 112/75 Pulse Oximetry 100 Oxygen Delivery Method 05/24/22 00:30 05/24/22 01:00 05/24/22 01:00 Temperature Pulse Rate 92 H 92 H Respiratory Rate Blood Pressure 116/78 Pulse Oximetry 100 97 Oxygen Delivery Method 05/24/22 01:30 05/24/22 01:30 05/24/22 02:00 Temperature Pulse Rate 94 H Respiratory Rate Blood Pressure 102/77 109/67 Pulse Oximetry 96 Oxygen Delivery Method 05/24/22 02:00 Temperature Pulse Rate 102 H Respiratory Rate Blood Pressure Pulse Oximetry 95 Oxygen Delivery Method MDM - Nausea/Vomiting/Diarrhea Lab Data 05/23/22 21:35 05/23/22 21:35 Labs: Lab Results 05/23/22 05/23/22 05/23/22 Range/Units 21:35 21:35 21:35 WBC 6.0 (4.5-11.0) X10^3/uL RBC 4.34 (4.0-5.2) X10^6/uL Hgb 13.6 (12.0-16.0) g/dL Hct 39.1 (36-46) % MCV 90.1 (80-100) fL MCH 31.4 (26-34) PG MCHC 34.8 (30-36) % RDW 12.7 (11.6-14.8) % Plt Count 170 (150-400) X10^3/uL Neut % (Auto) 87.8 H (50-75) % Lymph % (Auto) 5.7 L (25-40) % [place] % (Auto) 5.5 (3-14) % Eos % (Auto) 0.5 L (2-4) % Baso % (Auto) 0.5 (0-2) % Neut # (Auto) 5200 (0744-9182) /uL Lymph # (Auto) 300 L (9322-7090) /uL [place] # (Auto) 300 (0-900) /uL Eos # (Auto) 0 (0-450) /uL Baso # (Auto) 0 (0-100) /uL Sodium 136 L (137-145) mmol/L Potassium 3.4 (3.4-5.1) mmol/L Chloride 103 (98-107) mmol/L Carbon Dioxide 22 (22-32) mmol/L BUN 13 (7-17) mg/dL Creatinine 0.63 (0.52-1.04) mg/dL Estimated GFR > 60 (>60) mL/min BUN/Creatinine Ratio 20.6 (6-22) Glucose 116 H (70-100) mg/dL Calcium 8.6 (8.4-10.2) mg/dL Total Bilirubin 0.8 (0.2-1.3) mg/dL AST 21 (14-36) IU/L ALT 16 (<35) IU/L Alkaline Phosphatase 53 (38-126) U/L Total Protein 7.1 (6.3-8.2) g/dL Albumin 4.3 (3.5-5.0) g/dL Globulin 2.8 (1.7-4.1) g/dL Albumin/Globulin Ratio 1.5 (1.0-2.8) Lipase 53 (23-300) U/L SARS-CoV-2 (PCR) Negative (Negative) Influenza A (RT-PCR) Flu a negative (NEGATIVE) Influenza B (RT-PCR) Flu b negative (NEGATIVE) RSV (PCR) Negative (Negative) Point of Care Testing Test Results Negative Urine Dip Bedside Urine Glucose Negative Bedside Urine Bilirubin - Negative Bedside Urine Ketone - Negative Urine Specific [place] 1.010 Bedside Urine Occult Blood - Negative Bedside Urine pH 6.0 Bedside Urine Protein - Negative Bedside Urine Urobilinogen - Negative Bedside Urine Nitrite - Negative Bedside Urine Leukocytes - Negative Esterase Imaging Data US - abdomen: Radiologist's Impression: Close Abdomen Ultrasound (Signed) Maria Isabel Alejandro - 05/23/22 Breast Ultrasound (Signed) Yu Bae - 12/30/18 Launch?[address] [address] Ultrasound Report Signed Patient: Benita Porter MR#: [id number] : 1990 Acct:[id number] Age/Sex: 31 / F Date of Service: 05/23/22 Loc: ED Accession Number: [id number] ?? Procedure: US abdomen complete Ordering Provider: Ronda Duron D.O. PROCEDURE:? US ABDOMEN COMPLETE ? INDICATIONS:? VOMITING AND DIARRHEA ? TECHNIQUE:? Real-time scanning was performed of the abdominal and retroperitoneal organs, with image documentation.? ? COMPARISON:? None. ? FINDINGS:? ? Liver:? Liver is normal in size and homogeneous in echotexture.? ? Gallbladder:? The gallbladder is normal without stones, sludge, wall thickening, or pericholecystic fluid.? ? Biliary ducts:? Intrahepatic bile ducts are non-dilated.? Extrahepatic bile duct caliber measures 4.4 mm.? Normal is 6-7 mm or less in diameter, or 10 mm or less post-cholecystectomy.? ? Pancreas:? Visualized portions of the pancreas are sonographically normal.? ? Spleen:? Spleen is normal in size and homogeneous in echotexture.? ? Kidneys:? Kidneys are normal in size and echotexture.? Right kidney measures 11.6 cm long; left kidney measures 10.2 cm long.? Mild right hydronephrosis.? No visible nephrolithiasis.? No solid masses.? ? Aorta:? Visualized aorta is normal in caliber at less than 3 cm.? ? Iliacs:? Proximal common iliac arteries are normal in caliber at less than 2.5 cm.? ? IVC:? Intrahepatic inferior vena cava is patent.? ? Miscellaneous:? No free abdominal fluid.? Bilateral jets were seen in the urinary bladder. ? ? IMPRESSION:? ? 1. Mild right hydronephrosis.? ? 2. Bilateral ureteral jets were seen in the urinary bladder is suggesting at least partial patency of the right ureter. ? 3. Consider CT KUB.? ? 4. Normal gallbladder.? Dictated by: Maria Isabel Alejandro M.D. on 05/24/2022 at 1:24 ? ? Approved by: Maria Isabel Alejandro M.D. on 05/24/2022 at 1:26?? [facility] Narrative Medical decision making narrative: 31-year-old female with complaint of nausea vomiting and diarrhea is feels similar to when she would norovirus. She also has a reported history of C diff. no reported recent antibiotic use. Patient's CBC shows new to 87% but otherwise normal WBC hemoglobin crit and platelets, sodium is 136 electrolytes are otherwise normal renal function normal glucose is 116 with normal LFTs and lipase. Patient had COVID/influenza and RSV symptoms did sound somewhat similar to influenza. This is negative. Patient has not been able to make a stool sa mple for GI panel up to this. She received a L fluids and Zofran her nausea is improved she is still slightly tachycardic states her blood pressure tends to be a little bit low normal normally. A 2 L of fluids, Toradol and Protonix, plan for abdominal ultrasound and re-evaluate. Patient states she is able to give a urine sample after her 1 L of fluids and this shows moderate hydro, bilateral ur eteral jets seen in bladder suggesting least partial patency of right ureter, normal gallbladder. Patient notes she is had some prior UTIs and kidney infections she is never been told if she had any structural changes. She does not have any acute flank pain currently. She states she is noticed a problem for several weeks or months. Her urine is negative for blood or obvious signs of infection it was sent for culture. She is feeling much better has not had any vomiting in the department vitals have been improving land for discharge and follow-up outpatient. Discharge Plan Departure Patient Disposition: Home Clinical Impression: Nausea, vomiting and diarrhea Activity Restrictions/Additional Instructions: Please follow-up for recheck if your symptoms are persisting. Your ultrasound shows some mild hydro, please follow-up in [place] for recheck. You may take Zofran 1 tablet every 6 hours as needed. Please return for persistent fevers, persistent vomiting, diarrhea black or bl oody stools, new abdominal back or flank pain, passing out, difficulty with urination or other new or concerning changes. Prescriptions: No Action citalopram 40 mg tablet 40 mg PO DAILY Label Comments: TK 1 T PO D FOR TREATMENT OF DEPRESSION OR ANXIETY multivitamin with minerals [Hair,Skin and Nails] Tablet 1 tab PO DAILY hydrocodone-acetaminophen 5-325 mg tablet 1 tab PO Q6H PRN (Reason: acute abdominal pain) Qty: 4 0RF Rx Instructions: do not drive. Referrals: Liliane Cartagena ARNP [Primary Care Provider] - Stand Alone Forms: Patient Portal/API
[2022-05-23 22:36] LABS: Influenza A - CEPHEID Flu A NEGATIVE (NEGATIVE); Influenza B - CEPHEID Flu B NEGATIVE (NEGATIVE); Respiratory Syncytial Virus Negative (Negative)
[2022-05-23 22:39] LABS: COVID-19 CEPHEID 4-PLEX PCR Negative (Negative)
--- NOTE | 2022-05-23 23:11 | DI.US.S_ITS ---
PROCEDURE: US ABDOMEN COMPLETE INDICATIONS: VOMITING AND DIARRHEA TECHNIQUE: Real-time scanning was performed of the abdominal and retroperitoneal organs, with image documentation. COMPARISON: None. FINDINGS: Liver: Liver is normal in size and homogeneous in echotexture. Gallbladder: The gallbladder is normal without stones, sludge, wall thickening, or pericholecystic fluid. Biliary ducts: Intrahepatic bile ducts are non-dilated. Extrahepatic bile duct caliber measures 4.4 mm. Normal is 6-7 mm or less in diameter, or 10 mm or less post-cholecystectomy. Pancreas: Visualized portions of the pancreas are sonographically normal. Spleen: Spleen is normal in size and homogeneous in echotexture. Kidneys: Kidneys are normal in size and echotexture. Right kidney measures 11.6 cm long; left kidney measures 10.2 cm long. Mild right hydronephrosis. No visible nephrolithiasis. No solid masses. Aorta: Visualized aorta is normal in caliber at less than 3 cm. Iliacs: Proximal common iliac arteries are normal in caliber at less than 2.5 cm. IVC: Intrahepatic inferior vena cava is patent. Miscellaneous: No free abdominal fluid. Bilateral jets were seen in the urinary bladder. IMPRESSION: 1. Mild right hydronephrosis. 2. Bilateral ureteral jets were seen in the urinary bladder is suggesting at least partial patency of the right ureter. 3. Consider CT KUB. 4. Normal gallbladder. Dictated by: Maria Isabel Alejandro M.D. on 05/24/2022 at 1:24 Approved by: Maria Isabel Alejandro M.D. on 05/24/2022 at 1:26
[2022-05-23] MEDS: KETOROLAC 30 MG/ML VIAL 15 MG IV (23:23)
[2022-05-23] MEDS: PANTOPRAZOLE 40 MG VIAL 80 MG IV (23:24)
[2022-05-23] MEDS: LACTATED RINGERS 1,000 ML 1000 ML IV (23:26)
[2022-05-24] VITALS: BP 110/61; PULSE 103; O2SAT 100
[2022-05-24 00:30] VITALS: BP 112/75; PULSE 92; O2SAT 100
[2022-05-24 01:00] VITALS: BP 116/78; PULSE 92; O2SAT 97
[2022-05-24 01:30] VITALS: BP 102/77; PULSE 94; O2SAT 96
[2022-05-24 02:00] VITALS: BP 109/67; PULSE 102; O2SAT 95
[2022-05-24 02:19] VITALS: BP 109/67; PULSE 98; RESP 16; TEMP 36.3; O2SAT 97
[2022-05-24] MEDS: ONDANSETRON 4 MG ODT PREPACK 1 BOTTLE MISC (02:22)
== END 2022-05-24 02:20 | disposition home or self-care (01) ==
PROVIDERS: Emergency Provider Emergency Medicine; PCP Internal Medicine
DX: R11.2 Nausea with vomiting, unspecified (principal); R19.7 Diarrhea, unspecified; Z20.822 Contact with and (suspected) exposure to COVID-19
CPT/HCPCS: 0241U; 36415; 76700; 80053; 81003; 81025; 83690; 85025; 87086; 96361; 96374; 96375; 99284; C9113; J1885; J2405